=== PATIENT | male | born 1995 | race Caucasian/White ===

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

== ENCOUNTER 2017-05-18 09:06 | Emergency (ER) | payer BC, OTHER ==
[~2017-05-18] VITALS: Ht 182.9 cm; Wt 96.0 kg
[2017-05-18 09:11] VITALS: TEMP 36.6; Ht 182.9 cm; Wt 96.0 kg
--- NOTE | 2017-05-18 09:23 | EMERGENCY ROOM VISIT NOTE ---
History Report prepared by Itzel: Diallo Koenig Under the Supervision of: Dr. Bonifacio Angel M.D. First contact with patient: 09:15 Chief Complaint: ANKLE PAIN Stated Complaint: RIGHT ANKLE PAIN History of Present Illness The patient is a 22 year old male who presents to the Emergency Room with complaints of constant right ankle pain following a fall occurring last night. The patient states that he fell off his skateboard and rolled his ankle last night while doing a trick. He notes that he fell a couple feet down the stairs. He reports that he was not wearing his helmet, but did not hit his head or lose consciousness. The patient states that he cannot put any weight on his ankle as the pressure worsens his pain, and notes that it feels like "two bones are grinding together." He also complains of toe numbness. He denies any knee pain, neck pain, back pain, chest pain, and SOB. He reports that he has hurt his right ankle before. Source of History: patient, family Onset: last night Position: ankle (right) Quality: other ("two bones are grinding together") Timing: constant Modifying Factors (Worsening): other (pressure) Associated Symptoms: No LOC, No neck pain, No chest pain, No SOB, No back pain Note: He also complains of toe numbness. He denies any knee pain. Review of Systems See HPI for pertinent positives & negatives. A total of 10 systems reviewed and were otherwise negative. Past Medical & Surgical Medical Problems: (1) No Known Active Medical Problems Old medical records were reviewed. Nurse's notes were reviewed and I agree with. Family History No pertinent family history stated. Social History Smoking Status: Never Smoker Alcohol Use: none Drug Use: none Housing Status: lives with family Occupation Status: student Current/Historical Medications Scheduled PRN Oxycodone Immediate Rel Tab (Roxicodone Ir), 1-2 TAB PO Q4H PRN for Severe Pain Allergies Coded Allergies: No Known Allergies (Unverified , 05/18/17) Physical Exam Vital Signs Date Time Temp Pulse Resp B/P (MAP) Pulse Ox O2 Delivery O2 Flow Rate FiO2 05/18/17 11:15 97 18 130/76 96 05/18/17 09:11 36.6 116 18 140/82 96 Room Air Physical Exam General: Non-ill appearing 22 year old male in no acute distress. HEENT: Normal cephalic atraumatic. Pupils are equal round and reactive to light. Sclerae are anicteric. Extraocular movements are intact. Oropharynx is pink with moist mucous membranes. No swelling of the mouth lips or tongue. Neck: Supple with a midline trachea. No meningeal signs or stiffness, no JVD or bruits. No Stridor. Chest: Clear to auscultation bilaterally. No wheezes or rhonchi. No increased work of breathing. Heart: regular rate and rhythm. Abdomen: Soft nontender, nondistended without rebound guarding or rigidity. Extremities: No cyanosis clubbing or edema. No calf tenderness or assymetry. Moderate swelling diffusely of the right ankle, bruising, toes are pink and well perfused. Normal cap refill and motor, 2+ distal pulses, normal Achilles function. Spine/Back. Non tender to palpation. No CVA tenderness Skin: Good turgor without rashes. Neurologic exam: Cranial nerves two through 12 are intact. Motor and sensation are intact and symmetrical throughout. Medical Decision & Procedures ER Provider Diagnostic Interpretation: Radiology results as stated below per my review and radiologist interpretation: R TIBIA/FIBULA 2 VIEWS ROUTINE, R ANKLE MIN 3 VIEWS ROUTINE, R FOOT MIN 3 VIEWS ROUTINE FINDINGS: The proximal tibia and fibula are intact. No fracture or dislocation within the right foot. The Lisfranc joint is well aligned. Soft tissue swelling within the ankle. Mild widening of the medial ankle joint which measures up to 6 mm. There is an essentially nondisplaced posterior malleolus fracture. There is also an oblique fracture of the distal fibula which demonstrates up to 5 mm of posterior displacement. IMPRESSION: 1. Fractures of the posterior and lateral malleolus as described above. There is also mild widening of the medial ankle joint. 2. The proximal tibia, proximal fibula, and right foot are intact. Electronically signed by: Filemon Li M.D. 05/18/2017 9:47 AM Medications Administered Medications (Trade) Dose Ordered Sig/Tigist Route Start Time Stop Time Status Last Admin Dose Admin Acetaminophen (Tylenol Tab) 1,000 mg NOW STAT PO 05/18/17 10:14 05/18/17 10:15 DC 05/18/17 10:55 1,000 MG ED Course 0916: Past medical records reviewed. The patient was evaluated in room A4, and a complete history and physical examination were performed. 1014: Acetaminophen 1000mg PO 1020: I spoke to Dr. Shelley - Angel Baen and Radha Dye. 1027: I reevaluated and updated the patient. His father is on the way. 1113: Upon reevaluation, the patient is stable. I discussed the results and treatment plan with him and his family. They verbalized agreement of the treatment plan. The patient was discharged home. Medical Decision Differential diagnoses include: ankle sprain, ankle fracture, and foot fracture. This patient comes in as described above he injured his right ankle last evening. He has diffuse swelling. He has some mild tingling in his toes but is neurologically and neurovascularly intact. He has good capillary refill and a normal pulse exam. The skin is closed and there is no laceration. He has no need tenderness. There is no instability ankle and is normal Achilles function. X-rays are obtained of the ankle tib-fib and foot and show a mildly widened mortise and a posterior and lateral mallelous. Given the location and the widened mortise I suspect she will likely need operative care I did discuss the case with Dr. Koch, and he recommends up putting the patient posterior splint and crutches and they can see him on Saturday in the office. The patient was seen by Dr. Ortiz several times in the past. At this point with the the swelling with this on the go down before they do operative repair. He is to rest ice and elevate. Use acetaminophen no more than 2 pills every 6 hours. For breakthrough pain, use OxyIR 5 mill grams, one or 2 pills every 4-6 hours as needed. He was warned that this could make him drowsy and do not take before drinking, driving, working. He should return to the ER if: increasing pain, numbness or weakness, any problems or concerns. He was happy with plan and discharged to home. Medication Reconcilliation Current Medication List: was personally reviewed by me Blood Pressure Screening Patient's blood pressure: Normal blood pressure Blood pressure disposition: Did not require urgent referral Consults Time Called: 1024 Consulting Physician: Angel Fernandez and [facility] Returned Call: [phone] Discussed the patient's case. Impression Primary Impression: Ankle fracture Scribe Attestation The scribe's documentation has been prepared under my direction and personally reviewed by me in its entirety. I confirm that the note above accurately reflects all work, treatment, procedures, and medical decision making performed by me. Departure Information Dispostion Home / Self-Care Prescriptions Oxycodone Immediate Rel Tab (ROXICODONE IR) 5 Mg Tab 1-2 TAB PO Q4H Y for Severe Pain, #24 TAB Prov: Bonifacio Angel M.D. 05/18/17 Referrals Hilario Otero M.D. (PCP) Forms HOME CARE DOCUMENTATION FORM, IMPORTANT VISIT INFORMATION Patient Instructions My [facility] Additional Instructions Rest Ice. Elevate Use Acetaminophen a maximum of 650 mg every 6 hours Do not take with any other medications that contain acetaminophne /tylenol For more severe pain, use OxyIR 5 mg, 1-2 pills every 4-6 hours as needed OxyIR may make you drowsy, do not take before drinking, driving, working Use crutches and stay off of it Follow-up with Dr. Ortiz on Saturday for recheck
--- NOTE | 2017-05-18 09:49 | DIAGNOSTIC IMAGING REPORT ---
R TIBIA/FIBULA 2 VIEWS ROUTINE, R ANKLE MIN 3 VIEWS ROUTINE, R FOOT MIN 3 VIEWS ROUTINE CLINICAL HISTORY: eval for trauma. Right lower leg, ankle, and foot pain. Fall. COMPARISON STUDY: None. FINDINGS: The proximal tibia and fibula are intact. No fracture or dislocation within the right foot. The Lisfranc joint is well aligned. Soft tissue swelling within the ankle. Mild widening of the medial ankle joint which measures up to 6 mm. There is an essentially nondisplaced posterior malleolus fracture. There is also an oblique fracture of the distal fibula which demonstrates up to 5 mm of posterior displacement. IMPRESSION: 1. Fractures of the posterior and lateral malleolus as described above. There is also mild widening of the medial ankle joint. 2. The proximal tibia, proximal fibula, and right foot are intact. Electronically signed by: Filemon Li M.D. 05/18/2017 9:47 AM Dictated Date/Time: 05/18/2017 9:44 AM
[2017-05-18] MEDS ORDERED: ACETAMINOPHEN 500 MG TAB PO STA (10:14)
[2017-05-18] MEDS ORDERED: OXYC1TAB3 PO (11:11)
[2017-05-18 11:15] VITALS: BP 130/76; PULSE 97; O2SAT 96
[2017-05-20] MEDS ORDERED: OXYC1CAP5 PO (15:10)
[2017-05-20] MEDS ORDERED: TRAM-10 PO (15:10)
[2017-05-20] MEDS ORDERED: GARL1200 PO (15:10)
[2017-05-20] MEDS ORDERED: IBUP-1050 PO (15:10)
[2017-05-20] MEDS ORDERED: ACET-1256 PO (15:10)
[2017-05-20] MEDS ORDERED: MULT-506 PO (15:10)
== END 2017-05-18 11:15 | disposition home or self-care (01) ==
LOC: C.EDB 09:08 → C.EDA 11:15
DX: S82.61XA Displaced fracture of lateral malleolus of right fibula, initial encounter for closed fracture (principal); V00.131A Fall from skateboard, initial encounter; W10.9XXA Fall (on) (from) unspecified stairs and steps, initial encounter; Y93.51 Activity, roller skating (inline) and skateboarding; Y99.8 Other external cause status

== ENCOUNTER → 2017-05-22 | Day surgery (SDC) | payer BC, OTHER ==
[2017-05-20 15:12] VITALS: Ht 184.2 cm; Wt 95.5 kg
[~2017-05-22] VITALS: Ht 184.2 cm; Wt 95.5 kg
[~2017-05-22] MED LIST: ACET-1256 PO; ALBUTEROL HFA INHALER 8.5 GM INH ONE; ATROPINE SULFATE 0.1 MG/ML 5ML SYR IV PRN; BUPIVACAINE/EPINEPHRINE 0.5% MPF 1:200,000 30 ML VIAL ONE; CEFAZOLIN 2000MG IV PUSH 10 ML IV SCH; CEFAZOLIN SOD 1 GM VIAL ONE; CEFAZOLIN SOD 1000MG/5 ML IV PUSH IV ONE; DEXAMETHASONE SOD INJ 4 MG/ML VIAL ONE; DiphenhydrAMINE HCL 50 MG/ML VIAL ONE; EpHEDrine SULFATE INJ 50 MG/ML AMP IV PRN; EpINEphrine INJ 1MG/ML AMP 1 MG/ML AMP ONE; FENTANYL CITRATE INJ 50 MCG/1 ML 2 ML VIAL IV PRN; FENTANYL CITRATE INJ 50 MCG/1 ML 2 ML VIAL ONE; GARL1200 PO; GLYCOPYRROLATE INJ 0.2 MG/ML VIAL ONE; HYDROmorphone INJ 1 MG/ML SYR IV PRN; IBUP-1050 PO; KETO10TA PO; LACTATED RINGER'S 1000ML 1,000 ML IV SCH; LIDOCAINE HCL 2% 2 ML VIAL (20MG/ML) ONE; MIDAZOLAM HCL 1 MG/ML 2ML VIAL ONE; MULT-506 PO; NEOSTIGMINE METHYLSULFATE 5 MG/5 ML SYR ONE; ONDANSETRON INJ 2 MG/ML 2 ML VIAL IV PRN; ONDANSETRON INJ 2 MG/ML 2 ML VIAL ONE; OXYC1CAP5 PO; OXYCODONE/ACETAMINOPHEN 5-325 TAB PO PRN; PROPOFOL IV EMULSION 10 MG/ML 20 ML VIAL IV ONE; ROCURONIUM BROMIDE 10 MG/ML 5 ML VIAL IV ONE; SODIUM CHLORIDE 0.9% 1000ML 1,000 ML IV SCH; TRAM-10 PO; TYLOTC500 PO
--- NOTE | 2017-05-22 09:18 | History & Physical Bridge - SC ---
H&P Re-Evaluation Bridge Note: I have examined the patient, reviewed the History & Physical and in the interval since the performance of the History & Physical I have noted the following changes of clinical significance: No changes noted
--- NOTE | 2017-05-22 11:17 | [facility] Post Operative Brief Note ---
Immediate Operative Summary Operative Date May 22, 2017. Pre-Operative Diagnosis Right ankle lateral malleolus fracture Post-Operative Diagnosis Same as preop Procedure(s) Performed Right Ankle Open Reduction Internal Fixation Surgeon Dr. Ortiz Panel Installer Surgeon(s) Marcus Wilde PA-C Estimated Blood Loss 10 mL Findings Displaced unstable [place] B ankle fracture Specimens None Anesthesia General Complication(s) None Disposition Recovery Room / PACU
--- NOTE | 2017-05-22 11:22 | Discharge Instructions-SurgCtr ---
Discharge Instructions Date of Service May 22, 2017. Visit Reason for Visit: Right Ankle Closed Fracture Lateral Malleolus Discharge Discharge Diagnosis / Problem: right ankle fx Discharge Goals Goal(s): Therapeutic intervention Activity Recommendations Activity Limitations: per Instructions/Follow-up section Weightbearing Status: Right non-weightbearing Anesthesia . Post Anesthesia Instructions: If you have had General Anesthesia or IV Sedation: * Do not drive today. * Resume driving when surgeon permits. * Do not make important decisions or sign legal documents today. * Call surgeon for: 1. Temperature elevations greater than 101 degrees F. 2. Uncontrollable pain. 3. Excessive bleeding. 4. Persistent nausea and vomiting. 5. Medication intolerance (nausea, vomiting or rash). * For nausea and vomiting use only clear liquids such as: tea, soda, bouillon until nausea subsides, then gradually increase diet as tolerated. * If you have any concerns or questions, call your surgeon's office. If physician is unavailable and it is an emergency, call 911 or go to the nearest emergency room. . Instructions / Follow-Up Instructions / Follow-Up MEDICATIONS: * Resume previous medications unless instructed otherwise by your surgeon. * Always take pain medication on a full stomach or with food to avoid upset stomach. * Do not drink alcohol or drive while taking narcotics. * Ibuprofen or Tylenol may be taken if narcotic not needed. No ibuprofen while taking toradol SPECIAL CARE INSTRUCTIONS: __ None _x_ Keep extremity elevated and iced x 48 hours; apply ice 20-30 minutes 8-10 times/day. May remove at night. _x_ Crutches __ May discard when able __ Brace/Post-op shoe __ 24 hrs/day __ Remove at night _x_ Dressing _x_ Maintain until seen in office, may shower with plastic over site __ Remove dressings in 24-48 hours and then may shower __ Cover incisions with band-aids after showering __ Do not remove steri-strips Call physician if chills or temperature rises above 102 degrees or pain unrelieved by prescribed pain medications. Office [phone] follow up in 2 weeks Diet Recommendations Home Diet: resume previous diet Procedures Procedures Performed: Right Ankle Open Reduction Internal Fixation Pending Studies Studies pending at discharge: no Medical Emergencies . Who to Call and When: Medical Emergencies: If at any time you feel your situation is an emergency, please call 911 immediately. . Non-Emergent Contact Non-Emergency issues call your: Surgeon . . "Provider Documentation" section prepared by Jerrod Wilde. .
--- NOTE | 2017-05-22 11:58 | DIAGNOSTIC IMAGING REPORT ---
SURGICNTR CHEST 1 VIEW PORTABLE CLINICAL HISTORY: Low oxygen saturation.. Possible aspiration COMPARISON STUDY: 08/21/2012 FINDINGS: The cardiac and mediastinal contours are normal. There is no evidence of focal pulmonary consolidation. There is no evidence of failure. No pleural effusions are visualized.[ No pneumothorax is visualized. IMPRESSION: No active disease in the chest. Electronically signed by: Sha Luther M.D. 05/22/2017 11:57 AM Dictated Date/Time: 05/22/2017 11:56 AM
[2017-05-22 12:02] VITALS: TEMP 37.1
[2017-05-22 12:59] VITALS: BP 114/68; PULSE 85; O2SAT 96
--- NOTE | 2017-05-22 13:06 | Anesthesiology Progress Note ---
Anesthesia Post Op Note Date & Time May 22, 2017 at 13:04 Vital Signs Pain Intensity: 0 Vital Signs Past 12 Hours Date Time Temp Pulse Resp B/P (MAP) Pulse Ox O2 Delivery O2 Flow Rate FiO2 05/22/17 12:59 85 16 114/68 (83) 96 Room Air 05/22/17 12:03 78 4 97 05/22/17 12:03 75 4 05/22/17 12:02 37.1 75 12 116/65 97 Room Air 05/22/17 12:01 116/65 05/22/17 11:58 82 19 97 05/22/17 11:58 83 19 05/22/17 11:56 111/50 05/22/17 11:53 79 13 05/22/17 11:53 78 13 99 05/22/17 11:51 114/61 05/22/17 11:48 77 14 98 05/22/17 11:48 77 14 05/22/17 11:46 108/60 05/22/17 11:43 92 23 05/22/17 11:43 93 23 100 05/22/17 11:41 111/54 05/22/17 11:38 95 99 05/22/17 11:38 95 05/22/17 11:36 122/73 05/22/17 11:33 94 05/22/17 11:33 94 100 05/22/17 11:31 119/66 05/22/17 11:28 82 21 98 05/22/17 11:28 83 21 05/22/17 11:26 116/70 05/22/17 11:23 87 12 98 05/22/17 11:23 88 12 05/22/17 11:21 112/65 05/22/17 11:18 107 16 05/22/17 11:18 108 16 99 05/22/17 11:16 137/75 05/22/17 11:14 120/63 05/22/17 11:13 37.2 122 20 120/63 99 Mask 6 05/22/17 08:58 36.7 83 18 144/76 (98) 97 Room Air Notes Mental Status: alert / awake / arousable, participated in evaluation Pt Amnestic to Procedure: Yes Nausea / Vomiting: adequately controlled Pain: adequately controlled Airway Patency, RR, SpO2: stable & adequate BP & HR: stable & adequate Hydration State: stable & adequate Anesthetic Complications: Mr. Sparks had a period of intraoperative hypoxia. Please see the progress note filed in the chart under my name for full documentation of the episode. In PACU, the patient had a clear chest x-ray without evidence of aspiration. His PACU course had no additional complications and at the time of discharge, Mr. Sparks had no apparent neurological complications from the event and was discharged home in the care of his mother.
--- NOTE | 2017-05-22 14:33 | Progress Note ---
Progress Note Date of Service May 22, 2017. Progress Note Mr. Adebayo Sparks is a 22 yo male who was scheduled for right ankle fracture repair with Dr. Ortiz today. The patient was taken to the operating room and attached to all ASA monitors. He was preoxygenated and received an IV induction with proprofol. He was noted to have significant myoclonus after induction and was noted to have increased oral secretions. Patient was given rocuronium for paralysis and was an easy mask. The patient was intubated by the nurse email campaign specialist who had a grade 1 view and the ETT was placed easily. After placement, I auscultated and the patient had bilateral breath sounds, but auscultation was notable for expiratory wheezing bilaterally. He had positive ET CO2, good chest rise, and misting of the tube with expiration. At 0938 the patient began desaturating and was not responsive to hand ventilation. I was called to the room, and the patient was given albuteral via tube, benadryl, and epinephrine for suspected severe bronchospasm. Patient continued to desaturate and the lips were noted to be dusky. Code cart and support personal were called to the room. I performed direct laryngoscopy and the tube no longer appeared to be through the cords. The tube was immediately removed and the patient was hand masked with improvement in oxygen saturations. The entire event from start of desaturation until return to 100% saturation was 3 minutes by monitor recordings. After return to 100% saturation, I performed a second DL with MAC 4 blade and had a grade 1 view. The patient was reintubated and then a few minutes after reintubating, he had a second desaturation with sats dropping to the 80s. The tube was suctioned with return of copious clear secretions. Oxygen saturations improved again after aggressive suctioning and then remained stable for the remainder of the case. Throughout the hypoxic episode, the patient had a strong pulse and maintained an appropriate blood pressure. After stabilization of the patient's oxygenation, Dr. Ortiz and I discussed proceeding with surgery versus canceling. At the time of the discussion, the patient was still paralyzed from his initial dose of rocuronium and was not reversible. In addition, the patient's ankle fracture required a repair. Therefore, we made the decision to proceed with the case. At the end of the case, the patient had excellent strength, was moving all extremities and met all extubation requirements. The patient was suctioned and extubated. Immediately after extubation, the patient was speaking and he did well throughout his time in recovery. He was weaned to room air and oxygen saturations remained in the high 90s on room air. A follow-up CXR was negative for evidence of aspiration. At the time of discharge, there was no evidence of adverse complications from the event, with the patient appropriately conversant , alert and oriented x 3, and moving all extremities. I personally had a discussion with both the patient and his mother about the desaturation, the medications that were given, and that the ETT had to be removed and replaced. All questions were answered and a letter was given to the patient and his mother about the myoclonus and bronchospasm after propofol administration, in case a reaction to propofol contributed to the event. Katelyn Gonzalez MD, PhD
--- NOTE | 2017-05-22 15:28 | OPERATIVE REPORT ---
DATE OF OPERATION: 05/22/2017 SURGEON: Dr. Abraham Ortiz. BUSINESS EDITOR: WHIT Wilde PREOPERATIVE DIAGNOSIS: Right displaced unstable London B ankle fracture. POSTOPERATIVE DIAGNOSIS: Same. PROCEDURE PERFORMED: Open reduction internal fixation of right unstable [place] B ankle fracture. COMPLICATIONS: None. ESTIMATED BLOOD LOSS: 10 mL. TOURNIQUET TIME: 40 minutes at 300 mmHg. ANESTHESIA: General. OPERATIVE INDICATIONS: The patient is a 22-year-old male who injured his ankle over the weekend skateboarding. He had acute onset of pain. He was taken to the emergency room where x-rays revealed an unstable London B ankle fracture with a posterior malleolus fracture. He was indicated for surgical treatment. OPERATIVE IMPLANTS: Operative implants consisted of: 1. A Synthes 7-hole 1/3 semitubular stainless steel plate. 2. Synthes 4.5 fully threaded cortical screws x6. 3. Synthes 4.0 fully threaded cancellous screws x3. OPERATIVE PROCEDURE: The patient taken to the operating room, identified and placed on the operating table in supine position. All contact areas were appropriately padded. IV antibiotics provided by anesthesia team. A general anesthetic was implemented. Upon placing a general anesthetic, the patient did develop a several minute period of hypoxia and I believe it was felt to be related to a misplacement of the endotracheal tube. The tube was removed and he was bagged and then reintubated and recovered from this appropriately. There was a discussion and we elected to proceed with surgery as he had recovered nicely and he needed his ankle fixed. The right lower extremity splint was removed. The right side tourniquet was then placed. I then scrubbed his right ankle and foot with Hibiclens and then prepped with ChloraPrep and the right leg was then prepped and draped in the usual sterile fashion. The right leg was elevated and exsanguinated with Esmarch and tourniquet was placed at 300 mmHg. Direct lateral approach to the fibula was then performed through a straight longitudinal incision over the lateral border of the tibia. Sharp dissection was carried through the subcutaneous tissue down to the level of the fibula. The periosteum was opened and there was a quite a bit of stripping, proximally. We exposed the fracture site. I irrigated the fracture site of all clot and removed it with the use of a curette. I then anatomically reduced the fracture and held with a reduction clamp. It was then fixed with a single lag screw from anterior to posterior. I contoured a 7-hole 1/3 semitubular plate to the lateral fibula and fixed it proximally with four 3.5 fully threaded cortical screws and then distally with three 4.0 fully threaded cancellous screws. I then placed 1 additional lag screw from anterior to posterior due to the long nature of the fracture site. X-ray was brought in. All hardware was appropriately positioned. I stressed the ankle and there was no widening of the medial clear space. Attention was then drawn toward closing. The wound was irrigated with copious amounts of normal saline. I did inject locally with 30 mL of 0.5% Marcaine with epinephrine. The periosteum over the fracture was then closed with 0 Vicryl suture in a [id number] fashion. The tourniquet was then let down for final tourniquet time of 40 minutes. Hemostasis was assured with use of electrocautery. The wound was once again irrigated. The subcutaneous tissues were then closed with 2-0 Dexon suture in a buried interrupted fashion. Skin was closed with 3-0 nylon sutures. The leg was then cleaned and dried and a sterile dressing of Xeroform, 4 x 4, sterile cast padding and a well-padded posterior and stirrup splint were applied. The patient then brought out of general anesthesia and transferred to the recovery room in stable condition. The patient tolerated the procedure well. There were no additional complications. I attest to the content of the Intraoperative Record and any orders documented therein. Any exception s are noted below.
--- NOTE | 2017-05-23 13:45 | Progress Note ---
Progress Note Date of Service May 23, 2017. Progress Note A call was placed this morning to Mr. Adebayo Sparks to see how he was doing. Adebayo reported that he did well yesterday until around 8 PM when he noticed he had blurred vision. The blurred vision seems to be predominantly in his left eye and is accompanied with a "dark spot" in his left eye when he closes it. He denies any eye pain or other symptoms at this time. He felt his blurred vision might be secondary to his prescribed Toradol so he stopped this medication, but continued to take his narcotic. This morning, he felt like his vision remained blurry and he reported poor pain control from his ankle surgery. I spoke with Dr. Webb from [facility] who offered to have the patient seen in their clinic tomorrow. I spoke with the patient this afternoon and told him he was scheduled for an appointment with Dr. Rice at [facility] at 1:15 PM tomorrow, May 22. The patient reported that his pain has improved by taking Ibuprofen in combination with his prescribed narcotic. In addition, he felt that his eye symptoms were better this afternoon, but he would still like to be seen by Dr. Rice tomorrow. I provided him with the contact information and address of [facility] and provided him with my contact information to ensure he can reach me with any additional concerns. I will plan to follow up with the patient again tomorrow after his appointment. Katelyn Gonzalez MD, PhD Anesthesiology
--- NOTE | 2017-05-24 18:31 | Progress Note ---
Progress Note Date of Service May 24, 2017. Progress Note Spoke to Mr. Adebayo Sparks on the phone today in follow-up to his complaints of blurred vision. The patient was seen by Dr. Rice in the eye clinic earlier today and he reports that the visit went well. The patient states that Dr. Rice did not find anything concerning. The patient reports that his eye symptoms continue to improve, but that they are still there. According to Dr. Rice, if the patient continues to have symptoms he will see him in the office again next week to check Mr. Sparks's peripheral vision. I again encouraged Mr. Sparks to contact me with any questions or concerns and promised to follow- up next week. Katelyn Gonzalez MD. PhD Anesthesiology
--- NOTE | 2017-06-06 11:54 | Progress Note ---
Progress Note Date of Service Jun 06, 2017. Progress Note Called to follow-up with Mr. Sparks about his eye symptoms. Patient states that symptoms continue to improve but that there is still something different in his affected eye that he just can describe. Patient states that he is to follow-up again with Dr. Rice's office in 1 month. Asked the patient if there was additional support that we could provide at this time, but patient said no. He stated that he is preparing to move to [place] right now and is concentrating on the move. He was again encouraged to call my cell phone with any questions or concerns. Katelyn Gonzalez MD, PhD Anesthesiology Department
== END | disposition home or self-care (01) ==
LOC: X.SURG 08:22
PROVIDERS: ATTEND Orthopaedic Surgery Sports Medicine
DX: S82.841A Displaced bimalleolar fracture of right lower leg, initial encounter for closed fracture (principal); S82.61XA Displaced fracture of lateral malleolus of right fibula, initial encounter for closed fracture; X58.XXXA Exposure to other specified factors, initial encounter; Y93.51 Activity, roller skating (inline) and skateboarding; Z98.890 Other specified postprocedural states; Z98.818 Other dental procedure status; Z88.5 Allergy status to narcotic agent

== ENCOUNTER 2017-10-19 02:53 | Emergency (ER) | payer OTHER ==
[~2017-10-19] VITALS: Ht 182.9 cm; Wt 69.9 kg
[~2017-10-19 02:53] MED LIST changes: -ACET-1256 PO; -ALBUTEROL HFA INHALER 8.5 GM INH ONE; -ATROPINE SULFATE 0.1 MG/ML 5ML SYR IV PRN; -BUPIVACAINE/EPINEPHRINE 0.5% MPF 1:200,000 30 ML VIAL ONE; -CEFAZOLIN 2000MG IV PUSH 10 ML IV SCH; -CEFAZOLIN SOD 1 GM VIAL ONE; -CEFAZOLIN SOD 1000MG/5 ML IV PUSH IV ONE; -DEXAMETHASONE SOD INJ 4 MG/ML VIAL ONE; -DiphenhydrAMINE HCL 50 MG/ML VIAL ONE; -EpHEDrine SULFATE INJ 50 MG/ML AMP IV PRN; -EpINEphrine INJ 1MG/ML AMP 1 MG/ML AMP ONE; -FENTANYL CITRATE INJ 50 MCG/1 ML 2 ML VIAL IV PRN; -FENTANYL CITRATE INJ 50 MCG/1 ML 2 ML VIAL ONE; -GLYCOPYRROLATE INJ 0.2 MG/ML VIAL ONE; -HYDROmorphone INJ 1 MG/ML SYR IV PRN; -IBUP-1050 PO; -KETO10TA PO; -LACTATED RINGER'S 1000ML 1,000 ML IV SCH; -LIDOCAINE HCL 2% 2 ML VIAL (20MG/ML) ONE; -MIDAZOLAM HCL 1 MG/ML 2ML VIAL ONE; -NEOSTIGMINE METHYLSULFATE 5 MG/5 ML SYR ONE; -ONDANSETRON INJ 2 MG/ML 2 ML VIAL IV PRN; -ONDANSETRON INJ 2 MG/ML 2 ML VIAL ONE; -OXYCODONE/ACETAMINOPHEN 5-325 TAB PO PRN; -PROPOFOL IV EMULSION 10 MG/ML 20 ML VIAL IV ONE; -ROCURONIUM BROMIDE 10 MG/ML 5 ML VIAL IV ONE; -SODIUM CHLORIDE 0.9% 1000ML 1,000 ML IV SCH; -TRAM-10 PO
[2017-10-19 02:57] VITALS: TEMP 36.7; Ht 182.9 cm; Wt 69.9 kg
[2017-10-19] MEDS ORDERED: LORAZEPAM 1 MG TAB SL STA (03:08)
--- NOTE | 2017-10-19 03:15 | EMERGENCY ROOM VISIT NOTE ---
History First contact with patient: 02:57 Chief Complaint: MENTAL HEALTH EVALUATION Stated Complaint: VOLUNTARY MENTAL HEALTH EVAL History of Present Illness The patient is a 22 year old male who presents to the Emergency Room with complaints of supposedly texting his friends that he was going to hurt himself tonight. The patient was brought in by [facility] police. The patient admits to drinking tonight. He denies being suicidal or homicidal tonight. Per police the patient was texting his friends that he was going to harm himself. The patient denies this. He does not want his parents called. The patient is currently suspended from [employer] [facility]. He wishes to leave because he has work in the morning at 8 AM. Review of Systems See HPI for pertinent positives & negatives. A total of 10 systems reviewed and were otherwise negative. Past Medical/Surgical History Medical Problems: (1) No Known Active Medical Problems Social History Smoking Status: Never Smoker Alcohol Use: none Drug Use: none Housing Status: lives with family Occupation Status: student Current/Historical Medications Scheduled Garlic (Garlic), 1 CAP PO DAILY Multivitamin (Multivitamin), 1 TAB PO DAILY Quetiapine Fumarate (Seroquel), 100 MG PO HS Scheduled PRN Acetaminophen (Tylenol), 1,000 MG PO DIRECTED PRN for Pain or Fever Physical Exam Vital Signs Date Time Temp Pulse Resp B/P (MAP) Pulse Ox O2 Delivery O2 Flow Rate FiO2 10/19/17 10:09 97 16 116/71 97 10/19/17 09:12 97 16 116/71 97 Room Air 10/19/17 02:57 36.7 119 18 134/82 97 Room Air Physical Exam GENERAL: Awake, alert, well-appearing, in no acute distress HENT: Normocephalic, atraumatic. Oropharynx unremarkable. EYES: injected conjunctiva. Sclera non-icteric. NECK: Supple. No nuchal rigidity. FROM. No JVD. RESPIRATORY: Clear to auscultation. CARDIAC: Regular rate, normal rhythm. Extremities warm and well perfused. Pulses equal. ABDOMEN: Soft, non-distended. No tenderness to palpation. No rebound or guarding. No masses. RECTAL: Deferred. MUSCULOSKELETAL: Chest examination reveals no tenderness. The back is symmetrical on inspection without obvious abnormality. There is no CVA tenderness to palpation. No joint edema. LOWER EXTREMITIES: Calves are equal size bilaterally and non-tender. No edema. No discoloration. NEURO: Normal sensorium. No sensory or motor deficits noted. SKIN: No rash or jaundice noted. Medical Decision & Procedures Laboratory Results 10/19/17 03:16 Red Blood Count 5.43, Mean Corpuscular Volume 85.6, Mean Corpuscular Hemoglobin 30.8, Mean Corpuscular Hemoglobin Concent 35.9, Mean Platelet Volume 10.3, Neutrophils (%) (Auto) 57.7, Lymphocytes (%) (Auto) 31.3, Monocytes (%) (Auto) 6.2, Eosinophils (%) (Auto) 4.3, Basophils (%) (Auto) 0.4, Neutrophils # (Auto) 4.80, Lymphocytes # (Auto) 2.61, Monocytes # (Auto) 0.52, Eosinophils # (Auto) 0.36, Basophils # (Auto) 0.03 10/19/17 03:16 Test 10/19/17 03:14 10/19/17 03:16 Urine Color YELLOW Urine Appearance CLEAR (CLEAR) Urine pH 5.0 (4.5-7.5) Urine Specific [place] 1.025 (1.000-1.030) Urine Protein NEG (NEG) Urine Glucose (UA) NEG (NEG) Urine Ketones TRACE (NEG) Urine Occult Blood NEG (NEG) Urine Nitrite NEG (NEG) Urine Bilirubin NEG (NEG) Urine Urobilinogen NEG (NEG) Urine Leukocyte Esterase NEG (NEG) Urine Opiates Screen NEG (NEG) Urine Methadone, Qualitative NEG (NEG) Urine Barbiturates NEG (NEG) Urine Phencyclidine (PCP) Level NEG (NEG) Ur Amphetamine/Methamphetamine NEG (NEG) MDMA (Ecstasy) Screen NEG (NEG) Urine Benzodiazepines Screen NEG (NEG) Urine Cocaine Metabolite NEG (NEG) Urine Marijuana (THC) NEG (NEG) White Blood Count 8.33 K/uL (4.8-10.8) Red Blood Count 5.43 M/uL (4.7-6.1) Hemoglobin 16.7 g/dL (14.0-18.0) Hematocrit 46.5 % (42-52) Mean Corpuscular Volume 85.6 fL (80-100) Mean Corpuscular Hemoglobin 30.8 pg (25-34) Mean Corpuscular Hemoglobin Concent 35.9 g/dl (32-36) Platelet Count 220 K/uL (130-400) Mean Platelet Volume 10.3 fL (7.4-10.4) Neutrophils (%) (Auto) 57.7 % Lymphocytes (%) (Auto) 31.3 % Monocytes (%) (Auto) 6.2 % Eosinophils (%) (Auto) 4.3 % Basophils (%) (Auto) 0.4 % Neutrophils # (Auto) 4.80 K/uL (1.4-6.5) Lymphocytes # (Auto) 2.61 K/uL (1.2-3.4) Monocytes # (Auto) 0.52 K/uL (0.11-0.59) Eosinophils # (Auto) 0.36 K/uL (0-0.5) Basophils # (Auto) 0.03 K/uL (0-0.2) RDW Standard Deviation 43.3 fL (36.4-46.3) RDW Coefficient of Variation 13.9 % (11.5-14.5) Immature Granulocyte % (Auto) 0.1 % Immature Granulocyte # (Auto) 0.01 K/uL (0.00-0.02) Anion Gap 9.0 mmol/L (3-11) Est Creatinine Clear Calc Drug Dose 143.8 ml/min Estimated GFR () 148.3 Estimated GFR (Non- 127.9 BUN/Creatinine Ratio 12.8 (10-20) Calcium Level 8.5 mg/dl (8.5-10.1) Total Bilirubin 0.2 mg/dl (0.2-1) Direct Bilirubin < 0.1 mg/dl (0-0.2) Aspartate Amino Transf (AST/SGOT) 27 U/L (15-37) Alanine Aminotransferase (ALT/SGPT) 31 U/L (12-78) Alkaline Phosphatase 97 U/L (45-117) Total Protein 7.8 gm/dl (6.4-8.2) Albumin 4.1 gm/dl (3.4-5.0) Thyroid Stimulating Hormone (TSH) 1.920 uIu/ml (0.300-4.500) Ethyl Alcohol mg/dL 210.0 mg/dl (0-3) Medical Decision Pt arrives brought in by Elio Barbosa over concerns that the patient texted his friends that he was going to kill himself tonight. He strongly denies this and wishes to leave. I offered to discuss this with his parents however the patient is adamantly refusing that we call his mother. Laboratory work was obtained. Pt was also interviewed by case management. His alcohol level will be cleared at 9 AM and he was signed out to Dr. Angel at change of shift pending clearance of alcohol. Impression Primary Impression: Alcohol intoxication Additional Impression: Mood disorder Departure Information Dispostion Still a Patient Referrals Hilario Otero M.D. (PCP) Patient Instructions My [facility] Problem Qualifiers Primary Impression: Alcohol intoxication Complication of substance-induced condition: uncomplicated Qualified Codes: F10.920 - Alcohol use, unspecified with intoxication, uncomplicated
[2017-10-19 03:27] LABS: BASO % 0.4 %; BASO ABS # 0.03 K/uL (0-0.2); EOS % 4.3 %; EOS ABS # 0.36 K/uL (0-0.5); HEMATOCRIT 46.5 % (42-52); HEMOGLOBIN 16.7 g/dL (14.0-18.0); IG# 0.01 K/uL (0.00-0.02); LYMPH % 31.3 %; LYMPH ABS # 2.61 K/uL (1.2-3.4); MEAN CELL VOLUME 85.6 fL (80-100); MEAN CORPUSCULAR HEMOGLOBIN 30.8 pg (25-34); MEAN CORPUSCULAR HGB CONC 35.9 g/dl (32-36); MEAN PLATELET VOLUME 10.3 fL (7.4-10.4); MONO % 6.2 %; MONO ABS # 0.52 K/uL (0.11-0.59); NEUT % 57.7 %; PLATELET COUNT 220 K/uL (130-400); RED CELL DISTRIBUTION WIDTH CV 13.9 % (11.5-14.5); RED CELL DISTRIBUTION WIDTH SD 43.3 fL (36.4-46.3); WHITE BLOOD COUNT 8.33 K/uL (4.8-10.8)
[2017-10-19] MEDS ORDERED: QUET1TAB34 PO (03:42)
[2017-10-19] MEDS ORDERED: ACET-1256 PO (03:42)
[2017-10-19 04:07] LABS: ALBUMIN 4.1 gm/dl (3.4-5.0); ALKALINE PHOSPHATASE 97 U/L (45-117); ALT/SGPT 31 U/L (12-78); AST/SGOT 27 U/L (15-37); BLOOD UREA NITROGEN 10 mg/dl (7-18); CALCIUM 8.5 mg/dl (8.5-10.1); CARBON DIOXIDE 22 mmol/L (21-32); CREATININE 0.81 mg/dl (0.60-1.40); GLUCOSE 123 mg/dl (70-99); POTASSIUM 3.5 mmol/L (3.5-5.1); SODIUM 143 mmol/L (136-145); TOTAL PROTEIN 7.8 gm/dl (6.4-8.2)
--- NOTE | 2017-10-19 06:48 | EMERGENCY ROOM VISIT NOTE ---
ED Visit Note This patient was signed out to me by Dr. Smalls at shift change. He was brought in by the police after apparently having a suicidal text he was also intoxicated. He sobered up and at shift change was continued to sober up with was otherwise medically cleared. He was seen by mental health and further evaluated. When he sobered up, he adamantly denies that he wants to hurt himself and said that the text that he sent was meant to be sarcastic. He was evaluated at length by Debby, our psychiatric case management coordinator, and she feels that he is safe to go home. I went and talked him at length and he adamantly denies to me suicidal homicidal ideations and is anxious to get home. He assures me that he will return if : he has thoughts of hurting himself or others or any new problems or concerns. He was recommended that he follow-up with his regular doctor for recheck. Return here at any point if any new concerns.
[2017-10-19 10:09] VITALS: BP 116/71; PULSE 97; O2SAT 97
== END 2017-10-19 10:11 | disposition home or self-care (01) ==
LOC: C.EDB 02:54 → C.EDA 10:11
DX: F10.129 Alcohol abuse with intoxication, unspecified (principal); F39 Unspecified mood [affective] disorder